=== PATIENT | female | born 1975 | race Caucasian/White ===

== ENCOUNTER 2016-10-04 09:37 | Emergency (ER) | payer OTHER ==
[2016-10-04 10:32] LABS: BASO % 0.5 % (0.1-1.2); EOS # 0.2 10_X3_uL (0.0-0.4); EOS % 2.8 % (0.7-5.8); GRAN # 3.7 10_X3_uL (1.6-6.1); GRAN % 64.8 % (34.0-71.1); HEMATOCRIT 39.3 % (34-45); HEMOGLOBIN 12.8 g/dL (11.2-15.7); LYMPH # 1.4 10_X3_uL (1.2-3.7); LYMPH % 24.8 % (19.3-51.7); MEAN CORPUSCULAR HEMOGLOBIN 24.9 pg (27.0-33.0); MEAN CORPUSCULAR HGB CONC 32.6 g/dL (32.0-36.0); MEAN CORPUSCULAR VOLUME 76.5 fL (79-95); MEAN PLATELET VOLUME 10.9 fl (7.5-11.5); MONO # 0.4 10_X3_uL (0.2-0.9); MONO % 7.1 % (4.7-12.5); PLATELET COUNT 206 x10_3/uL (182-369); RED BLOOD COUNT 5.14 x10_6/uL (3.9-5.2); RED CELL DISTRIBUTION WIDTH 15.8 % (11.7-14.4); WHITE BLOOD COUNT 5.8 x10_3/uL (4.0-10.0)
[2016-10-04 10:47] LABS: ALBUMIN 4.1 gm/dL (3.4-5.0); ALKALINE PHOSPHATASE 109 U/L (50-136); ALT/SGPT 14 U/L (3.5-33.9); AST/SGOT 13 U/L (7.04-26.96); BILIRUBIN,TOTAL 0.27 mg/dL (0.0-1.0); BLOOD UREA NITROGEN 10 mg/dL (7-18); CARBON DIOXIDE 24 mmol/L (21-32); CREATINE KINASE 50 U/L (21-215); CREATININE 0.8 mg/dL (0.6-1.3); GLUCOSE,RANDOM 110 mg/dL (70-99); POTASSIUM 3.8 mmol/L (3.5-5.1); SODIUM 141 mmol/L (136-145); TOTAL PROTEIN 6.9 gm/dL (6.4-8.2)
[2016-10-04 11:07] LABS: URINE BILIRUBIN NEGATIVE (NEGATIVE); URINE BLOOD NEGATIVE (NEGATIVE); URINE GLUCOSE (UA) NORMAL (NORMAL); URINE KETONE NEGATIVE (NEGATIVE); URINE LEUKOCYTE ESTERASE NEGATIVE (NEGATIVE); URINE NITRATE NEGATIVE (NEGATIVE); URINE PROTEIN NEGATIVE (NEGATIVE); UROBILINOGEN NORMAL mg/dL (<1.0)
[2016-10-04 15:59] LABS: CALCIUM 9.6 mg/dL (8.7-10.7)
== END 2016-10-04 12:34 | disposition home or self-care (01) ==
LOC: ER 09:37
PROVIDERS: Emergency Medicine
DX: R53.1 Weakness (principal); R42 Dizziness and giddiness; E11.9 Type 2 diabetes mellitus without complications; I10 Essential (primary) hypertension; J45.909 Unspecified asthma, uncomplicated; F41.9 Anxiety disorder, unspecified
CPT/HCPCS: 36415; 80053; 81003; 82550; 82553; 85025; 93005; 99285-25

== ENCOUNTER 2017-01-20 12:21 | Emergency (ER) | payer OTHER ==
[2017-01-20 12:48] LABS: URINE BILIRUBIN NEGATIVE (NEGATIVE); URINE BLOOD NEGATIVE (NEGATIVE); URINE GLUCOSE (UA) NORMAL (NORMAL); URINE KETONE NEGATIVE (NEGATIVE); URINE LEUKOCYTE ESTERASE NEGATIVE (NEGATIVE); URINE NITRATE NEGATIVE (NEGATIVE); URINE PROTEIN NEGATIVE (NEGATIVE); UROBILINOGEN NORMAL mg/dL (<1.0)
== END 2017-01-20 14:38 | disposition home or self-care (01) ==
LOC: ER 12:21
PROVIDERS: Emergency Medicine
DX: M54.9 Dorsalgia, unspecified (principal); G89.29 Other chronic pain; M79.604 Pain in right leg; M79.605 Pain in left leg; Z79.891 Long term (current) use of opiate analgesic; K21.9 Gastro-esophageal reflux disease without esophagitis; J45.909 Unspecified asthma, uncomplicated; E03.9 Hypothyroidism, unspecified; I10 Essential (primary) hypertension; E66.01 Morbid (severe) obesity due to excess calories; Z79.899 Other long term (current) drug therapy; Z79.3 Long term (current) use of hormonal contraceptives
CPT/HCPCS: 72072; 72100; 81003; 99070; 99283-25

== ENCOUNTER 2017-04-11 11:50 | Emergency (ER) | payer OTHER ==
[2017-04-11 12:50] LABS: BASO % 0.5 % (0.1-1.2); EOS # 0.2 10_X3_uL (0.0-0.4); EOS % 2.7 % (0.7-5.8); GRAN % 62.9 % (34.0-71.1); HEMATOCRIT 38.6 % (34-45); HEMOGLOBIN 12.8 g/dL (11.2-15.7); LYMPH # 1.7 10_X3_uL (1.2-3.7); LYMPH % 26.9 % (19.3-51.7); MEAN CORPUSCULAR HEMOGLOBIN 24.7 pg (27.0-33.0); MEAN CORPUSCULAR HGB CONC 33.2 g/dL (32.0-36.0); MEAN CORPUSCULAR VOLUME 74.4 fL (79-95); MEAN PLATELET VOLUME 10.7 fl (7.5-11.5); MONO # 0.5 10_X3_uL (0.2-0.9); PLATELET COUNT 264 x10_3/uL (182-369); RED BLOOD COUNT 5.19 x10_6/uL (3.9-5.2); RED CELL DISTRIBUTION WIDTH 15.7 % (11.7-14.4); WHITE BLOOD COUNT 6.4 x10_3/uL (4.0-10.0)
[2017-04-11 13:03] LABS: ALBUMIN 4.3 gm/dL (3.4-5.0); ALKALINE PHOSPHATASE 82 U/L (50-136); ALT/SGPT 17 U/L (3.5-33.9); AST/SGOT 17 U/L (7.04-26.96); BLOOD UREA NITROGEN 9 mg/dL (7-18); CALCIUM 9.5 mg/dL (8.7-10.7); CARBON DIOXIDE 27 mmol/L (21-32); CREATINE KINASE 75 U/L (21-215); CREATININE 0.7 mg/dL (0.6-1.3); GLUCOSE,RANDOM 105 mg/dL (70-99); POTASSIUM 3.4 mmol/L (3.5-5.1); SODIUM 141 mmol/L (136-145); TOTAL PROTEIN 7.3 gm/dL (6.4-8.2)
== END 2017-04-11 14:17 | disposition home or self-care (01) ==
LOC: ER 11:50
PROVIDERS: Emergency Medicine
DX: R07.89 Other chest pain (principal); Z77.120 Contact with and (suspected) exposure to mold (toxic); S29.011A Strain of muscle and tendon of front wall of thorax, initial encounter; Y93.E9 Activity, other interior property and clothing maintenance; R06.02 Shortness of breath; R05 Cough; J45.909 Unspecified asthma, uncomplicated; I10 Essential (primary) hypertension; F31.9 Bipolar disorder, unspecified; F41.9 Anxiety disorder, unspecified; E03.9 Hypothyroidism, unspecified
CPT/HCPCS: 36415; 71020; 80053; 82550; 82553; 85025; 93005; 94664; 99284-25